=== PATIENT | female | born 1955 | race Caucasian/White ===

== ENCOUNTER 2020-04-18 19:16 | Emergency (ER) | payer BC, MEDICARE ==
[~2020-04-18] VITALS: Ht 175.3 cm; Wt 94.5 kg
--- NOTE | 2020-04-18 19:24 | NUR ---
EKG accomplished in triage.
--- NOTE | 2020-04-18 20:49 | NUR ---
PT UP TO RESTROOM FOR URINE SAMPLE COLLECTION.
--- NOTE | 2020-04-18 21:01 | NUR ---
URINE SAMPLE COLLECTED AND SENT, ALTHOUGH LOW VOLUME. PT AWARE THAT SAMPLE MAY BE REJECTED AND NEED RECOLLECTED. ERP AWARE. PT DENIES ANY FURTHER NEEDS OR CONCERNS, CALL LIGHT IN REACH.
[2020-04-18 21:18] LABS: BASOPHILS # (AUTO) 0.03 x10^3/uL (0-0.1); BASOPHILS % (AUTO) 0 % (0-1); EOSINOPHILS # (AUTO) 0.17 x10^3/uL (0-0.4); EOSINOPHILS % (AUTO) 2 % (1-7); LYMPHOCYTES # (AUTO) 1.86 x10^3/uL (1-3.4); LYMPHOCYTES % (AUTO) 22 % (22-44); MD NO; MEAN CORPUSCULAR HEMOGLOBIN 29.6 pg (27.0-34.8); MEAN CORPUSCULAR HGB CONC 32.5 g/dL (32.4-35.8); MEAN CORPUSCULAR VOLUME 91.1 fL (80-100); MEAN PLATELET VOLUME 9.2 fL (7.4-10.4); MONOCYTES # (AUTO) 0.78 x10^3/uL (0.2-0.8); MONOCYTES % (AUTO) 9 % (2-9); NEUTROPHILS # (AUTO) 5.67 x10^3/uL (1.8-6.8); NEUTROPHILS % (AUTO) 67 % (42-75); PLATELET COUNT 287 x10^3/uL (130-400); RED BLOOD COUNT 5.25 x10^6/uL (3.82-5.3); RED CELL DISTRIBUTION WIDTH 14.1 % (9.6-15.2)
[2020-04-18 21:19] LABS: ANION GAP 7 mmol/L (5-15); CALCIUM 9.6 mg/dL (8.5-10.1); CHLORIDE 108 mmol/L (98-107); CREATININE 1.08 mg/dL (0.55-1.02)
[2020-04-18 21:51] VITALS: BP 124/70
--- NOTE | 2020-04-18 21:52 | NUR ---
PT ATTEMPTED TO PROVIDE URINE SAMPLE, THIS TIME INTO A HAT. PT MISSED ENTIRELY. RETURNED TO BED WITHOUT ISSUE. PROVIDED WITH ICE WATER. DENIES ANY FURTHER NEEDS OR CONCERNS. CALL LIGHT IN REACH.
[2020-04-18 22:35] LABS: MICROSCOPIC AUTO
[2020-04-18 23:14] LABS: AMPHETAMINE SCREEN, URINE Negative (Negative); BARBITURATE SCREEN, URINE Negative (Negative); BENZODIAZEPINE SCREEN, URINE Negative (Negative); CANNABINOID SCREEN, URINE Positive (Negative); COCAINE SCREEN, URINE Negative (Negative); METHADONE SCREEN, URINE Negative (Negative); OPIATE SCREEN, URINE Negative (Negative)
== END 2020-04-18 23:23 | disposition home or self-care (01) ==
LOC: ED 22:04
DX: M62.81 Muscle weakness (generalized) (principal); R42 Dizziness and giddiness; I10 Essential (primary) hypertension; I44.4 Left anterior fascicular block
CPT/HCPCS: 36415; 70450; 71046; 80048; 80307; 81001; 85025; 87086; 93005; 99285

== ENCOUNTER 2020-07-04 21:43 | Inpatient (IN) | payer BC, MEDICARE ==
[~2020-07-04] VITALS: Ht 175.3 cm; Wt 90.3 kg
[2020-07-04 23:18] LABS: BASOPHILS # (AUTO) 0.01 x10^3/uL (0-0.1); BASOPHILS % (AUTO) 0 % (0-1); EOSINOPHILS # (AUTO) 0.07 x10^3/uL (0-0.4); EOSINOPHILS % (AUTO) 1 % (1-7); LYMPHOCYTES % (AUTO) 13 % (22-44); MD NO; MEAN CORPUSCULAR HEMOGLOBIN 29.4 pg (27.0-34.8); MEAN CORPUSCULAR HGB CONC 32.8 g/dL (32.4-35.8); MEAN CORPUSCULAR VOLUME 89.5 fL (80-100); MEAN PLATELET VOLUME 9.2 fL (7.4-10.4); MONOCYTES # (AUTO) 0.81 x10^3/uL (0.2-0.8); MONOCYTES % (AUTO) 9 % (2-9); NEUTROPHILS # (AUTO) 6.97 x10^3/uL (1.8-6.8); NEUTROPHILS % (AUTO) 77 % (42-75); PLATELET COUNT 245 x10^3/uL (130-400); RED BLOOD COUNT 5.68 x10^6/uL (3.82-5.3)
[2020-07-04 23:31] LABS: ALANINE AMINOTRANSFERASE 45 U/L (12-78); ALBUMIN 3.5 g/dL (3.4-5.0); ANION GAP 7 mmol/L (5-15); CALCIUM 9.3 mg/dL (8.5-10.1); CHLORIDE 109 mmol/L (98-107); CREATININE 0.96 mg/dL (0.55-1.02)
[2020-07-04 23:34] LABS: ALKALINE PHOSPHATASE 179 U/L (45-117); BILIRUBIN,TOTAL 0.6 mg/dL (0.2-1.0); TOTAL PROTEIN 7.5 g/dL (6.4-8.2)
[2020-07-05] MEDS ORDERED: SODIUM CHLORIDE 0.9% 1,000 ML IV SCH (01:45)
[2020-07-05] MEDS ORDERED: ACETAMINOPHEN 325 MG TABLET PO PRN (02:00)
[2020-07-05 02:17] VITALS: BP 157/89
[2020-07-05] MEDS ORDERED: GADOTERATE 10 MMOL/20 ML SYR ONE (07:42)
[2020-07-05 08:56] VITALS: BP 157/92
[2020-07-05 14:19] VITALS: BP 167/97
[2020-07-05 14:58] LABS: MICROSCOPIC INDICATED
[2020-07-05] MEDS ORDERED: NIFE90TA8 PO (16:23)
[2020-07-05] MEDS ORDERED: PARO40TA61 PO (16:23)
[2020-07-05] MEDS ORDERED: LISI30TA4 PO (16:23)
[2020-07-05] MEDS ORDERED: OXYB-39 PO (16:23)
[2020-07-05] MEDS ORDERED: ATOR10TA9 PO (16:23)
[2020-07-05] MEDS: ENOXAPARIN 40 MG/0.4 ML SQ SCH (17:51)
[2020-07-05 19:45] VITALS: BP 173/92
[2020-07-05] MEDS ORDERED: OXYBUTYNIN CHLORIDE 5 MG TABLET PO ONE (20:04)
[2020-07-05] MEDS ORDERED: niFEDipine ER 90 MG TAB.ER.24 PO ONE (20:04)
[2020-07-05] MEDS ORDERED: LISINOPRIL 10 MG TABLET PO ONE (20:04)
[2020-07-05] MEDS ORDERED: PAROXETINE 20 MG TABLET PO ONE (20:04)
[2020-07-05] MEDS ORDERED: ATORVASTATIN 10 MG TABLET PO ONE (20:04)
[2020-07-05] MEDS ORDERED: niFEDipine ER 30 MG TABLET.ER ONE (20:18)
[2020-07-06 01:02] VITALS: BP 163/97
[2020-07-06 05:20] LABS: ANION GAP 8 mmol/L (5-15); CALCIUM 9.4 mg/dL (8.5-10.1); CHLORIDE 110 mmol/L (98-107); CREATININE 0.96 mg/dL (0.55-1.02)
[2020-07-06 05:27] LABS: BASOPHILS # (AUTO) 0.01 x10^3/uL (0-0.1); BASOPHILS % (AUTO) 0 % (0-1); EOSINOPHILS % (AUTO) 0 % (1-7); LYMPHOCYTES # (AUTO) 0.85 x10^3/uL (1-3.4); LYMPHOCYTES % (AUTO) 14 % (22-44); MD NO; MEAN CORPUSCULAR HEMOGLOBIN 29.5 pg (27.0-34.8); MEAN CORPUSCULAR HGB CONC 32.4 g/dL (32.4-35.8); MEAN CORPUSCULAR VOLUME 90.8 fL (80-100); MEAN PLATELET VOLUME 9.2 fL (7.4-10.4); MONOCYTES # (AUTO) 0.06 x10^3/uL (0.2-0.8); MONOCYTES % (AUTO) 1 % (2-9); NEUTROPHILS # (AUTO) 4.98 x10^3/uL (1.8-6.8); NEUTROPHILS % (AUTO) 85 % (42-75); PLATELET COUNT 233 x10^3/uL (130-400); RED BLOOD COUNT 5.41 x10^6/uL (3.82-5.3)
[2020-07-06 07:49] VITALS: BP 146/94
[2020-07-06] MEDS: OXYBUTYNIN CHLORIDE 5 MG TABLET PO SCH (07:52)
[2020-07-06] MEDS: niFEDipine ER 90 MG TAB.ER.24 PO SCH (07:52)
[2020-07-06] MEDS: LISINOPRIL 10 MG TABLET PO SCH (07:52)
[2020-07-06] MEDS: ATORVASTATIN 10 MG TABLET PO SCH (07:52)
[2020-07-06] MEDS: PAROXETINE 20 MG TABLET PO SCH (07:53)
[2020-07-06 14:18] VITALS: BP 146/80
[2020-07-06] MEDS ORDERED: AVONEX IM SCH (16:30)
[2020-07-06] MEDS ORDERED: [UNRECOGNIZED DRUG - OTHER] HOMEINJ SCH (16:30)
[2020-07-06] MEDS: ENOXAPARIN 40 MG/0.4 ML SQ SCH (17:23)
[2020-07-06 18:55] VITALS: BP 163/95
[2020-07-07 00:36] VITALS: BP 158/83
[2020-07-07 06:34] VITALS: BP 154/88
[2020-07-07 07:54] VITALS: BP 158/85
[2020-07-07] MEDS: ATORVASTATIN 10 MG TABLET PO SCH (07:55)
[2020-07-07] MEDS: OXYBUTYNIN CHLORIDE 5 MG TABLET PO SCH (07:55)
[2020-07-07] MEDS: PAROXETINE 20 MG TABLET PO SCH (07:56)
[2020-07-07] MEDS: LISINOPRIL 10 MG TABLET PO SCH (07:56)
[2020-07-07] MEDS: niFEDipine ER 90 MG TAB.ER.24 PO SCH (07:57)
[2020-07-07] MEDS: THIAMINE 100MG TABLET PO SCH ×2 (09:30→21:15)
[2020-07-07 12:59] VITALS: BP 160/89
[2020-07-07] MEDS: ENOXAPARIN 40 MG/0.4 ML SQ SCH (17:36)
[2020-07-07 18:31] VITALS: BP 145/81
[2020-07-07] MEDS: DALFAMPRIDINE 10 MG HOMEMEDPO SCH (21:00)
[2020-07-08 00:57] VITALS: BP 167/80
[2020-07-08] MEDS: DALFAMPRIDINE 10 MG HOMEMEDPO SCH ×2 (09:00→21:00)
[2020-07-08 09:05] VITALS: BP 160/98
[2020-07-08] MEDS: ATORVASTATIN 10 MG TABLET PO SCH (09:13)
[2020-07-08] MEDS: OXYBUTYNIN CHLORIDE 5 MG TABLET PO SCH (09:13)
[2020-07-08] MEDS: PAROXETINE 20 MG TABLET PO SCH (09:14)
[2020-07-08] MEDS: LISINOPRIL 10 MG TABLET PO SCH (09:16)
[2020-07-08] MEDS: THIAMINE 100MG TABLET PO SCH ×2 (09:16→21:12)
[2020-07-08] MEDS: niFEDipine ER 90 MG TAB.ER.24 PO SCH (09:17)
--- NOTE | 2020-07-08 12:04 | NUR ---
REC: Home with Addendum: 07/08/20 at 1216 by Steff MYRICK Amended: Links added.
[2020-07-08 14:10] VITALS: BP 167/99
[2020-07-08] MEDS: ENOXAPARIN 40 MG/0.4 ML SQ SCH (17:33)
[2020-07-08 21:16] VITALS: BP 149/99
[2020-07-09 01:05] VITALS: BP 147/93
[2020-07-09 05:59] LABS: BASOPHILS # (AUTO) 0.01 x10^3/uL (0-0.1); BASOPHILS % (AUTO) 0 % (0-1); EOSINOPHILS # (AUTO) 0.05 x10^3/uL (0-0.4); EOSINOPHILS % (AUTO) 1 % (1-7); LYMPHOCYTES # (AUTO) 2.36 x10^3/uL (1-3.4); LYMPHOCYTES % (AUTO) 33 % (22-44); MD NO; MEAN CORPUSCULAR HEMOGLOBIN 29.1 pg (27.0-34.8); MEAN CORPUSCULAR HGB CONC 32.2 g/dL (32.4-35.8); MEAN CORPUSCULAR VOLUME 90.4 fL (80-100); MEAN PLATELET VOLUME 9.5 fL (7.4-10.4); MONOCYTES # (AUTO) 0.76 x10^3/uL (0.2-0.8); MONOCYTES % (AUTO) 11 % (2-9); NEUTROPHILS # (AUTO) 4.04 x10^3/uL (1.8-6.8); NEUTROPHILS % (AUTO) 56 % (42-75); PLATELET COUNT 220 x10^3/uL (130-400); RED BLOOD COUNT 5.45 x10^6/uL (3.82-5.3); RED CELL DISTRIBUTION WIDTH 14.1 % (9.6-15.2)
[2020-07-09 06:06] LABS: ANION GAP 4 mmol/L (5-15); CALCIUM 9.3 mg/dL (8.5-10.1); CHLORIDE 110 mmol/L (98-107)
[2020-07-09 07:21] VITALS: BP 174/109
[2020-07-09] MEDS: LISINOPRIL 10 MG TABLET PO SCH (07:47)
[2020-07-09] MEDS: DALFAMPRIDINE 10 MG HOMEMEDPO SCH ×2 (07:47→21:00)
[2020-07-09] MEDS: THIAMINE 100MG TABLET PO SCH ×2 (07:47→22:15)
[2020-07-09] MEDS: OXYBUTYNIN CHLORIDE 5 MG TABLET PO SCH (07:47)
[2020-07-09] MEDS: ATORVASTATIN 10 MG TABLET PO SCH (07:47)
[2020-07-09] MEDS: PAROXETINE 20 MG TABLET PO SCH (07:47)
[2020-07-09] MEDS ORDERED: niFEDipine ER 30 MG TABLET.ER ONE (07:48)
[2020-07-09] MEDS: niFEDipine ER 90 MG TAB.ER.24 PO SCH (07:49)
[2020-07-09 08:50] VITALS: BP 162/92
[2020-07-09 13:43] VITALS: BP 144/86
[2020-07-09] MEDS: ENOXAPARIN 40 MG/0.4 ML SQ SCH (16:48)
[2020-07-09 19:42] VITALS: BP 152/88
[2020-07-10 01:12] VITALS: BP 146/89
[2020-07-10 07:45] VITALS: BP 165/94
[2020-07-10] MEDS: THIAMINE 100MG TABLET PO SCH (08:31)
[2020-07-10] MEDS: OXYBUTYNIN CHLORIDE 5 MG TABLET PO SCH (08:31)
[2020-07-10] MEDS: LISINOPRIL 10 MG TABLET PO SCH (08:31)
[2020-07-10] MEDS: PAROXETINE 20 MG TABLET PO SCH (08:31)
[2020-07-10] MEDS: ATORVASTATIN 10 MG TABLET PO SCH (08:32)
[2020-07-10] MEDS: DALFAMPRIDINE 10 MG HOMEMEDPO SCH (08:35)
[2020-07-10] MEDS ORDERED: HYDROCHLOROTHIAZIDE 12.5 MG CAPSULE PO SCH (09:00)
[2020-07-10] MEDS: niFEDipine ER 90 MG TAB.ER.24 PO SCH (10:47)
[2020-07-10] MEDS ORDERED: DALF10TA PO (12:51)
[2020-07-10] MEDS ORDERED: INTE30PE3 IM (12:51)
[2020-07-10] MEDS ORDERED: DOXY100T PO (13:16)
[2020-07-10] MEDS ORDERED: HYDR12.517 PO (13:16)
[2020-07-10 13:33] VITALS: BP 143/94
[2020-07-10] MEDS ORDERED: DOXYCYCLINE 100MG TABLET PO SCH (21:00)
[2020-07-13] MEDS ORDERED: AVONEX IM SCH (16:30)
== END 2020-07-10 15:30 | disposition home or self-care (01) | DRG 60 ==
LOC: ED 23:30 → EDIP 07-05 00:50 → 3N 07-05 01:42
PROVIDERS: ADMIT Family Medicine; ATTEND Internal Medicine
DX: G35 Multiple sclerosis (principal); I10 Essential (primary) hypertension; R62.7 Adult failure to thrive; T38.0X5A Adverse effect of glucocorticoids and synthetic analogues, initial encounter; R73.9 Hyperglycemia, unspecified; R35.0 Frequency of micturition; N31.9 Neuromuscular dysfunction of bladder, unspecified; Y92.89 Other specified places as the place of occurrence of the external cause; Z68.29 Body mass index [BMI] 29.0-29.9, adult; Z79.899 Other long term (current) drug therapy
CPT/HCPCS: 36415; 70553; 72156; 72157; 80048; 80053; 81001; 83036; 85025; 87086; G0378; J1650; J2930; 92522-GN; A9575; J7030